=== PATIENT | male | born 1965 | race Caucasian/White ===

== ENCOUNTER 2019-06-15 21:55 | Emergency (ER) | payer OTHER ==
[~2019-06-15] VITALS: Ht 170.2 cm; Wt 77.1 kg
[2019-06-15 22:14] VITALS: BP 120/76
[2019-06-16 05:50] VITALS: BP 108/81
== END 2019-06-16 05:50 | disposition home or self-care (01) ==
LOC: EDBD 21:55 → MED 21:55
DX: F10.129 Alcohol abuse with intoxication, unspecified (principal); F17.200 Nicotine dependence, unspecified, uncomplicated
CPT/HCPCS: 99283

== ENCOUNTER 2019-07-17 15:48 | Emergency (ER) | payer OTHER ==
[~2019-07-17] VITALS: Ht 167.6 cm; Wt 77.1 kg
[2019-07-17 15:50] VITALS: BP 113/59
--- NOTE | 2019-07-17 15:50 | NUR ---
PT BIBA TO BED 09.
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
[2019-07-17 16:07] VITALS: BP 113/59
--- NOTE | 2019-07-17 16:07 | NUR ---
Patient discharged with v/s stable, PT AAOX4. PT REFUSEING TO SIGN DISCHARGE PAPERS OR [employer]. Written and verbal after care instructions given and explained. PT PROVIDED WITH BUS PASS, FOOD UPON DISCHARGE, AND HAS WHEATHER APPROPRAITE CLOTHING. Ambulatory with steady gait. All questions addressed prior to discharge. Advised to follow up with PMD.
--- NOTE | 2019-07-17 16:21 | NUR ---
PT REFUSING TO LEAVE BED, SECURITY CALLED.
== END 2019-07-17 16:07 | disposition home or self-care (01) ==
LOC: MED 15:48
DX: F10.129 Alcohol abuse with intoxication, unspecified (principal); F17.200 Nicotine dependence, unspecified, uncomplicated; Z59.0 Homelessness
CPT/HCPCS: 99283